=== PATIENT | female | born 1995 | race Caucasian/White ===

== ENCOUNTER → 2017-04-08 | Outpatient (REF) | payer OTHER | LOC: M LAB REF 16:20 | PROVIDERS: ATTEND Physician Assistant | DX: N39.0 Urinary tract infection, site not specified (principal) ==

== ENCOUNTER → 2017-05-24 | Outpatient (REF) | payer OTHER, SELFPAY | LOC: M LAB REF 14:45 | PROVIDERS: ATTEND Physician Assistant | DX: N39.0 Urinary tract infection, site not specified (principal) ==

== ENCOUNTER → 2017-09-01 | Outpatient (REF) | payer OTHER ==
[~2017-09-01] MED LIST: BCP PO; TRAZ50TA11 PO
[2017-09-01 21:16] LABS: BASO % 0.3 % (0.0-1.0); EOS # 0.1 10^3/uL (0.0-0.50); EOS % 1.4 % (0.0-3.0); IMMATURE GRANULOCYTE % 0.2 % (0-0); LYMPH # 1.6 10^3/uL (1.5-6.5); LYMPH % 27.5 % (24.0-44.0); MEAN CORPUSCULAR HEMOGLOBIN 30.1 pg (27.0-33.0); MEAN CORPUSCULAR HGB CONC 34.1 g/dl (32.0-36.5); MEAN CORPUSCULAR VOLUME 88.3 fl (80.0-96.0); MONO # 0.3 10^3/uL (0.0-0.8); MONO % 5.4 % (0.0-5.0); NEUTROPHILS # 3.8 10^3/uL (1.8-7.7); NEUTROPHILS % 65.2 % (36.0-66.0); PLATELET COUNT, AUTOMATED 200 10^3/uL (150-450); RED CELL DISTRIBUTION WIDTH 11.9 % (11.5-14.5); WHITE BLOOD COUNT 5.8 10^3/uL (4.0-10.0)
[2017-09-01 21:31] LABS: ALBUMIN 4.2 GM/DL (3.2-5.2); ALBUMIN/GLOBULIN RATIO 1.27 (1.00-1.93); ALKALINE PHOSPHATASE 61 U/L (45-117); ALT/SGPT 18 U/L (12-78); ANION GAP 6 MEQ/L (8-16); AST/SGOT 16 U/L (7-37); BILIRUBIN,TOTAL 0.3 MG/DL (0.2-1.0); BLOOD UREA NITROGEN 9 MG/DL (7-18); CARBON DIOXIDE LEVEL 29 MEQ/L (21-32); CHLORIDE LEVEL 106 MEQ/L (98-107); CREATININE FOR GFR 0.87 MG/DL (0.55-1.02); FREE T4 1.22 NG/DL (0.78-1.33); GLUCOSE, FASTING 120 MG/DL (70-105); POTASSIUM SERUM 3.7 MEQ/L (3.5-5.1); SODIUM LEVEL 141 MEQ/L (136-145); TOTAL PROTEIN 7.5 GM/DL (6.4-8.2)
== END ==
LOC: M LAB REF 10:11
PROVIDERS: ATTEND Physician Assistant
DX: R51 Headache (principal)

== ENCOUNTER 2017-09-04 09:52 | Emergency (ER) | payer OTHER ==
[~2017-09-04] VITALS: Ht 167.6 cm; Wt 76.1 kg
[2017-09-04] MEDS ORDERED: BCP PO (10:15)
[2017-09-04] MEDS ORDERED: TRAZ50TA11 PO (10:15)
[2017-09-04] MEDS ORDERED: KETOROLAC 30 MG/ML VIAL (J1885) IV ONE (11:00)
--- NOTE | 2017-09-04 11:24 | REP ---
Clinical: Acute headaches . Comparison: 07/16/2012 . Findings: The ventricles, sulci, and cisterns are normal in position and appearance. Fuller-white differentiation is maintained. No acute intracranial hemorrhage, mass/mass effect, pathology or trauma/injury. No evidence for acute infarction. No extra-axial fluid collection. Calvarium is intact. Paranasal sinuses and mastoid air cells are clear. Impression: Normal noncontrast head CT. No evidence for acute intracranial pathology or trauma/injury. Signed by Walter Wright MD 09/04/2017 11:16 A
[2017-09-04 11:45] LABS: BASO % 0.2 % (0.0-1.0); EOS % 0.4 % (0.0-3.0); IMMATURE GRANULOCYTE % 0.4 % (0-0); LYMPH # 1.3 10^3/uL (1.5-6.5); LYMPH % 24.8 % (24.0-44.0); MEAN CORPUSCULAR HEMOGLOBIN 29.9 pg (27.0-33.0); MEAN CORPUSCULAR HGB CONC 34.5 g/dl (32.0-36.5); MEAN CORPUSCULAR VOLUME 86.7 fl (80.0-96.0); MONO # 0.3 10^3/uL (0.0-0.8); MONO % 5.5 % (0.0-5.0); NEUTROPHILS # 3.5 10^3/uL (1.8-7.7); NEUTROPHILS % 68.7 % (36.0-66.0); PLATELET COUNT, AUTOMATED 183 10^3/uL (150-450); RED CELL DISTRIBUTION WIDTH 11.8 % (11.5-14.5); WHITE BLOOD COUNT 5.1 10^3/uL (4.0-10.0)
[2017-09-04 12:03] LABS: ALBUMIN 4.3 GM/DL (3.2-5.2); ALBUMIN/GLOBULIN RATIO 1.16 (1.00-1.93); ALKALINE PHOSPHATASE 50 U/L (45-117); ALT/SGPT 25 U/L (12-78); ANION GAP 7 MEQ/L (8-16); AST/SGOT 17 U/L (7-37); BILIRUBIN,DIRECT 0.2 MG/DL (0.0-0.2); BILIRUBIN,TOTAL 0.5 MG/DL (0.2-1.0); BLOOD UREA NITROGEN 9 MG/DL (7-18); CALCIUM LEVEL 8.9 MG/DL (8.5-10.1); CARBON DIOXIDE LEVEL 28 MEQ/L (21-32); CHLORIDE LEVEL 106 MEQ/L (98-107); CREATININE FOR GFR 0.94 MG/DL (0.55-1.02); GLUCOSE, FASTING 97 MG/DL (70-105); MAGNESIUM LEVEL 2.1 MG/DL (1.8-2.4); POTASSIUM SERUM 3.5 MEQ/L (3.5-5.1); SODIUM LEVEL 141 MEQ/L (136-145)
[2017-09-04 12:09] LABS: VITAMIN B12 LEVEL 200 PG/ML (247-911)
[2017-09-04 13:07] VITALS: BP 139/76
== END 2017-09-04 13:08 | disposition home or self-care (01) ==
LOC: M ED 09:52
DX: G43.009 Migraine without aura, not intractable, without status migrainosus (principal); E53.8 Deficiency of other specified B group vitamins; Z87.820 Personal history of traumatic brain injury; Z86.69 Personal history of other diseases of the nervous system and sense organs; Z82.49 Family history of ischemic heart disease and other diseases of the circulatory system
CPT/HCPCS: 70450; 80048; 80076; 82607; 82652; 83735; 85025; 96374; 99284; J1885

== ENCOUNTER 2017-09-06 15:40 | Emergency (ER) | payer OTHER ==
[~2017-09-06] VITALS: Ht 167.6 cm; Wt 72.7 kg
[2017-09-06] MEDS ORDERED: VITA500T53 PO (15:49)
[2017-09-06 17:13] VITALS: BP 141/75
== END 2017-09-06 17:54 | disposition home or self-care (01) ==
LOC: M ED 15:40
DX: R51 Headache (principal); R11.0 Nausea; H53.8 Other visual disturbances; F41.9 Anxiety disorder, unspecified; E53.8 Deficiency of other specified B group vitamins; Z79.899 Other long term (current) drug therapy; Z87.820 Personal history of traumatic brain injury; Z82.49 Family history of ischemic heart disease and other diseases of the circulatory system

== ENCOUNTER → 2017-09-08 | Outpatient (CLI) | payer OTHER ==
[~2017-09-08] MED LIST changes: +VITA500T53 PO
== END ==
LOC: M LAB 13:05
PROVIDERS: ATTEND Physician Assistant
DX: R51 Headache (principal)

== ENCOUNTER → 2017-09-10 | Outpatient (CLI) | payer OTHER ==
--- NOTE | 2017-09-10 15:11 | REP ---
MRI brain without contrast: History: Headache and pain. Numbness in the hands . Comparison study: Comparison CT studies are reviewed from September 04, 2017 and July 16, 2012. Technique: Axial and sagittal imaging planes are utilized for T1 and T2-weighted scans. Sequences include spin-echo, fast spin echo, FLAIR, and diffusion weighted sequences. MRI findings: No bony calvarial lesion is seen. Craniocervical junction and upper cervical cord are normal in appearance. There is no MR evidence of significant paranasal sinus disease. No intraorbital abnormality is seen. Sella turcica is unremarkable. Suprasellar cistern and optic chiasm is intact. The lateral, third, and fourth ventricles are normal in size and position. Fuller-white differentiation pattern is intact above and below the tentorium. There is no evidence of intracranial hemorrhage. No mass, infarction, extra-axial fluid collection or midline shift is seen. No abnormal white matter lesion is seen. Impression: Negative noncontrast brain MRI study. Signed by Jose Miguel Perez MD 09/10/2017 03:02 P
== END ==
LOC: M RAD 13:26
PROVIDERS: ATTEND Emergency Medicine
DX: R51 Headache (principal); R11.0 Nausea; H53.9 Unspecified visual disturbance

== ENCOUNTER → 2017-11-05 | Outpatient (REF) | payer OTHER ==
[2017-11-06 12:53] LABS: VITAMIN B12 LEVEL > 2000 PG/ML (247-911)
== END ==
LOC: M SFHCLERA 15:50
DX: E53.8 Deficiency of other specified B group vitamins (principal)

== ENCOUNTER → 2018-02-06 | Outpatient (REF) | payer OTHER | LOC: M LAB REF 17:59 | DX: J02.9 Acute pharyngitis, unspecified (principal) | CPT/HCPCS: 87081 ==

== ENCOUNTER → 2018-10-30 | Outpatient (REF) | payer OTHER ==
[~2018-10-30] MED LIST changes: +TRAZ-160 PO; -TRAZ50TA11 PO
[2018-10-30 20:34] LABS: CHLAMYDIA DNA AMPLIFICATION NEGATIVE (NEGATIVE); GC DNA AMPLIFICATION NEGATIVE (NEGATIVE)
== END ==
LOC: M SFHCWAGY 11:38
PROVIDERS: ATTEND Nurse Practitioner Women's Health
DX: Z12.4 Encounter for screening for malignant neoplasm of cervix (principal); R87.612 Low grade squamous intraepithelial lesion on cytologic smear of cervix (LGSIL)
CPT/HCPCS: 87491; 87591; G0123

== ENCOUNTER → 2019-05-03 | Outpatient (CLI) | payer OTHER ==
[~2019-05-03] MED LIST changes: +METHACHOLINE KIT (J7674) INH ONE; +SERT-141 PO; -TRAZ-160 PO; +TRAZ-252 PO; +VITA500T17 PO; -VITA500T53 PO
--- NOTE | 2019-05-03 13:13 | PFTRPT ---
Height: 66.00 Inches Weight: 170.00 Lbs BSA: 1.87 Diagnosis: R05 DATE OF STUDY: 05/03/2019 ORDERED BY: ALESHIA Irvin Spirometry: Pulmonary function of excellent technical quality. Forced vital capacity normal. FEV1 in proportion. Obstructive index is, therefore, normal. Flow Volume Loop: Expiratory limb of the flow volume loop is normal. Lung Volumes: Total lung capacity is normal. Residual volume is in proportion. Diffusing Capacity: Diffusing capacity normal. Hemoglobin: No hemoglobin available for correction. Airway Mechanics: Airway resistance and conductance are normal. IMPRESSION: Normal study. MTDD
--- NOTE | 2019-05-03 13:53 | PFTRPT ---
Height: 66.00 Inches Weight: 170.00 Lbs BSA: 1.87 Diagnosis: R05 DATE OF STUDY: 05/03/2019 ORDERED BY: ALESHIA Irvin INTERPRETATION: Study of excellent technical quality. Under protocol, methacholine was administered. Even after a maximal dose of 25 mg or 188.875 CDUs, no provocation dose was ever achieved. IMPRESSION: Negative methacholine challenge study. MTDD
== END ==
LOC: M CARPUL 12:44
PROVIDERS: ATTEND Nurse Practitioner Adult Health
DX: R05 Cough (principal)
CPT/HCPCS: 94010; 94070; 94726; 94729; J7674

== ENCOUNTER 2019-10-07 02:47 | Emergency (ER) | payer OTHER ==
[~2019-10-07] VITALS: Ht 165.1 cm; Wt 79.5 kg
[~2019-10-07 02:47] MED LIST changes: -METHACHOLINE KIT (J7674) INH ONE; -SERT-141 PO
[2019-10-07] MEDS ORDERED: SERT-141 PO (02:51)
--- NOTE | 2019-10-07 05:52 | REPVR ---
PROCEDURE INFORMATION: Exam: CT Head Without Contrast Exam date and time: 10/07/2019 5:29 AM Age: 24 years old Clinical indication: Weakness, extremity; Right; Patient HX: R arm numb; Additional info: Dysesth TECHNIQUE: Imaging protocol: Computed tomography of the head without contrast. Radiation optimization: All CT scans at this facility use at least one of these dose optimization techniques: automated exposure control; mA and/or kV adjustment per patient size (includes targeted exams where dose is matched to clinical indication); or iterative reconstruction. COMPARISON: CT Head without contrast 09/04/2017 10:57 AM FINDINGS: Brain: No CT evidence of acute cortical infarct. No mass effect. No edema. There is no evidence of intracranial hemorrhage. Ventricles: The ventricular system is midline and appropriate in size. No hydrocephalus. Bones/joints: There is no evidence of acute fracture. Sinuses: Visualized sinuses are unremarkable. No fluid levels. Mastoid air cells: Visualized mastoid air cells are free of acute inflammatory change. Orbits: The included orbital structures are unremarkable. Soft tissues: No large soft tissue hematoma. Please correlate clinically. IMPRESSION: No acute intracranial abnormality. Electronically signed by: Walter Amaya On 10/07/2019 05:51:44 AM
[2019-10-07 06:23] VITALS: BP 140/75
== END 2019-10-07 06:27 | disposition home or self-care (01) ==
LOC: M ED 02:47
DX: R20.2 Paresthesia of skin (principal); F41.9 Anxiety disorder, unspecified; Z79.899 Other long term (current) drug therapy

== ENCOUNTER → 2019-10-08 | Outpatient (REF) | payer OTHER ==
[~2019-10-08] MED LIST changes: +SERT-141 PO
[2019-10-08 18:40] LABS: ALT/SGPT 42 U/L (12-78); BILIRUBIN,TOTAL 0.5 MG/DL (0.2-1.0); BLOOD UREA NITROGEN 7 MG/DL (7-18); CALCIUM LEVEL 8.8 MG/DL (8.5-10.1); CARBON DIOXIDE LEVEL 26 MEQ/L (21-32); CHLORIDE LEVEL 109 MEQ/L (98-107); CREATININE FOR GFR 0.93 MG/DL (0.55-1.30); GLOMERULAR FILTRATION RATE > 60.0 (>60); GLUCOSE, FASTING 86 MG/DL (70-100); POTASSIUM SERUM 3.9 MEQ/L (3.5-5.1); SODIUM LEVEL 142 MEQ/L (136-145); TOTAL PROTEIN 7.3 GM/DL (6.4-8.2); VITAMIN B12 LEVEL 423 PG/ML (247-911)
== END ==
LOC: M SFHCPLAZ 15:22
PROVIDERS: ATTEND Nurse Practitioner Adult Health
DX: E53.8 Deficiency of other specified B group vitamins (principal); R20.2 Paresthesia of skin

== ENCOUNTER → 2019-12-23 | Outpatient (REF) | payer OTHER | LOC: M SFHCWAGY 09:58 | PROVIDERS: ATTEND Nurse Practitioner Women's Health | DX: Z12.4 Encounter for screening for malignant neoplasm of cervix (principal) ==

== ENCOUNTER → 2020-09-13 | Outpatient (REF) | payer OTHER | LOC: M LAB REF 17:33 | PROVIDERS: ATTEND Physician Assistant | DX: D48.9 Neoplasm of uncertain behavior, unspecified (principal) ==

== ENCOUNTER → 2020-11-30 | Outpatient (REF) | payer OTHER | LOC: M SFHCPLAZ 09:51 | PROVIDERS: ATTEND Physician Assistant | DX: B02.9 Zoster without complications (principal) ==

== ENCOUNTER → 2021-07-31 | Outpatient (REF) | payer OTHER ==
[2021-07-31 12:00] LABS: BASO % 0.4 % (0.0-1.0); EOS # 0.1 10^3/uL (0.0-0.5); EOS % 1.7 % (0.0-3.0); HEMATOCRIT 39.5 % (36.0-47.0); HEMOGLOBIN 13.4 g/dl (12.0-15.5); LYMPH # 1.7 10^3/uL (1.5-5.0); LYMPH % 36.2 % (24.0-44.0); MEAN CORPUSCULAR HEMOGLOBIN 29.6 pg (27.0-33.0); MEAN CORPUSCULAR HGB CONC 33.9 g/dl (32.0-36.5); MEAN CORPUSCULAR VOLUME 87.2 fl (80.0-96.0); MONO # 0.4 10^3/uL (0.0-0.8); MONO % 9.3 % (2.0-8.0); NEUTROPHILS # 2.4 10^3/uL (1.5-8.5); NEUTROPHILS % 52.2 % (36.0-66.0); PLATELET COUNT, AUTOMATED 207 10^3/uL (150-450); RED BLOOD COUNT 4.53 10^6/uL (4.00-5.40); WHITE BLOOD COUNT 4.6 10^3/uL (4.0-10.0)
[2021-07-31 12:25] LABS: ALBUMIN 3.7 GM/DL (3.2-5.2); ALT/SGPT 24 U/L (12-78); BILIRUBIN,TOTAL 0.4 MG/DL (0.2-1.0); BLOOD UREA NITROGEN 12 MG/DL (7-18); CALCIUM LEVEL 8.9 MG/DL (8.5-10.1); CARBON DIOXIDE LEVEL 29 MEQ/L (21-32); CHLORIDE LEVEL 107 MEQ/L (98-107); CHOLESTEROL LEVEL 209 MG/DL (<200); CHOLESTEROL RISK RATIO 3.317 (<5); CREATININE FOR GFR 0.93 MG/DL (0.55-1.30); FREE T4 1.05 NG/DL (0.76-1.46); GLOMERULAR FILTRATION RATE > 60.0 (>60); GLUCOSE, FASTING 92 MG/DL (70-100); HDL CHOLESTEROL 63 MG/DL (>40); LDL CHOLESTEROL 116 MG/DL (<100); NON-HDL-C 146 MG/DL; POTASSIUM SERUM 4.1 MEQ/L (3.5-5.1); SODIUM LEVEL 140 MEQ/L (136-145); TOTAL PROTEIN 7.1 GM/DL (6.4-8.2); TRIGLYCERIDES LEVEL 152 MG/DL (<150)
== END ==
LOC: M SFHCCLAY 07:27
PROVIDERS: ATTEND Nurse Practitioner Family
DX: F41.9 Anxiety disorder, unspecified (principal); J30.89 Other allergic rhinitis; E66.9 Obesity, unspecified; Z68.33 Body mass index [BMI] 33.0-33.9, adult

== ENCOUNTER → 2022-07-12 | Outpatient (CLI) | payer OTHER ==
[2022-07-12 13:32] LABS: HEMATOCRIT 39.3 % (36.0-47.0); HEMOGLOBIN 13.6 g/dl (12.0-15.5); MEAN CORPUSCULAR HEMOGLOBIN 30.2 pg (27.0-33.0); MEAN CORPUSCULAR HGB CONC 34.6 g/dl (32.0-36.5); MEAN CORPUSCULAR VOLUME 87.1 fl (80.0-96.0); PLATELET COUNT, AUTOMATED 210 10^3/uL (150-450); RED BLOOD COUNT 4.51 10^6/uL (4.00-5.40); WHITE BLOOD COUNT 6.6 10^3/uL (4.0-10.0)
[2022-07-12 14:53] LABS: HEPATITIS C VIRUS ABY INDEX < 0.0 INDEX (<0.8); HIV 1&2 SCREEN CENTAUR NEGATIVE (NEGATIVE)
[2022-07-12 15:04] LABS: GC DNA AMPLIFICATION NEGATIVE (NEGATIVE)
== END ==
LOC: M PLALAB 11:01
PROVIDERS: ATTEND Advanced Practice Midwife
DX: Z34.01 Encounter for supervision of normal first pregnancy, first trimester (principal)

== ENCOUNTER → 2022-07-22 | Outpatient (REF) | payer OTHER | LOC: M SFHCCLAY 16:47 | PROVIDERS: ATTEND Physician Assistant | DX: R30.0 Dysuria (principal) ==

== ENCOUNTER → 2022-08-28 | Outpatient (CLI) | payer OTHER | LOC: M WHC 13:01 | PROVIDERS: ATTEND Advanced Practice Midwife | DX: Z34.02 Encounter for supervision of normal first pregnancy, second trimester (principal) ==

== ENCOUNTER → 2022-10-03 | Outpatient (CLI) | payer OTHER | LOC: M WHC 13:05 | PROVIDERS: ATTEND Obstetrics & Gynecology | DX: Z36.2 Encounter for other antenatal screening follow-up (principal) ==

== ENCOUNTER 2022-11-05 12:56 | Outpatient (CLI) | payer OTHER ==
[~2022-11-05] VITALS: Ht 165.1 cm; Wt 99.7 kg
[2022-11-05 13:15] VITALS: BP 136/80
[2022-11-05] MEDS ORDERED: SERT-141 PO (13:21)
[2022-11-05] MEDS ORDERED: PRENTAB9 PO (13:21)
[2022-11-05] MEDS ORDERED: TUMS500C PO (13:21)
[2022-11-05] MEDS ORDERED: OMEP40CA4 PO (13:21)
[2022-11-05] MEDS ORDERED: LACTATED RINGER'S 1000 ML IV STA (13:36)
[2022-11-05] MEDS ORDERED: LR 1,000 ML IV SCH (13:40)
[2022-11-05] MEDS ORDERED: PROMETHAZINE 25MG/ML 1ML VIAL IV ONE (13:40)
[2022-11-05 14:14] VITALS: BP 126/68
[2022-11-05] MEDS ORDERED: ONDA4TAB6 PO (16:02)
[2022-11-05 16:16] VITALS: BP 123/71
== END 2022-11-05 17:05 | disposition home or self-care (01) ==
LOC: M LDO 12:56
PROVIDERS: ATTEND Obstetrics & Gynecology
DX: O21.8 Other vomiting complicating pregnancy (principal); Z3A.27 27 weeks gestation of pregnancy
CPT/HCPCS: 59025; 96360; 96361; 96374; G0378; G0463

== ENCOUNTER → 2022-11-08 | Outpatient (CLI) | payer OTHER ==
[~2022-11-08] MED LIST changes: +OMEP40CA4 PO; +ONDA4TAB6 PO; +PRENTAB9 PO; +TUMS500C PO
[2022-11-08 16:28] LABS: HEMATOCRIT 33.1 % (36.0-47.0); HEMOGLOBIN 11.2 g/dl (12.0-15.5); MEAN CORPUSCULAR HGB CONC 33.8 g/dl (32.0-36.5); MEAN CORPUSCULAR VOLUME 91.7 fl (80.0-96.0); PLATELET COUNT, AUTOMATED 142 10^3/uL (150-450); RED BLOOD COUNT 3.61 10^6/uL (4.00-5.40)
== END ==
LOC: M PLALAB 12:48
PROVIDERS: ATTEND Advanced Practice Midwife
DX: Z34.02 Encounter for supervision of normal first pregnancy, second trimester (principal)

== ENCOUNTER → 2022-12-17 | Outpatient (CLI) | payer OTHER ==
[2022-12-17 15:58] LABS: PROTEIN, URINE AUTO TRACE mg/dL (NEGATIVE)
[2022-12-17 16:03] LABS: HEMATOCRIT 36.9 % (36.0-47.0); HEMOGLOBIN 12.4 g/dl (12.0-15.5); MEAN CORPUSCULAR HGB CONC 33.6 g/dl (32.0-36.5); MEAN CORPUSCULAR VOLUME 92.3 fl (80.0-96.0); PLATELET COUNT, AUTOMATED 159 10^3/uL (150-450); WHITE BLOOD COUNT 9.5 10^3/uL (4.0-10.0)
[2022-12-17 16:29] LABS: CREATININE,RANDOM URINE 98.2 MG/DL
[2022-12-17 16:33] LABS: ALBUMIN 2.9 G/DL (3.2-5.2); ALKALINE PHOSPHATASE 111 U/L (46-116); ALT/SGPT 20 U/L (7.0-40); AST/SGOT 24 U/L (<34); BILIRUBIN,TOTAL 0.4 MG/DL (0.3-1.2); BLOOD UREA NITROGEN 7 MG/DL (9-23); CALCIUM LEVEL 9.3 MG/DL (8.5-10.1); CARBON DIOXIDE LEVEL 24 MMOL/L (20-31); CHLORIDE LEVEL 104 MMOL/L (98-107); CREATININE FOR GFR 0.67 MG/DL (0.55-1.30); GLOMERULAR FILTRATION RATE > 60.0 (>60); GLUCOSE, FASTING 89 MG/DL (60-100); SODIUM LEVEL 137 MMOL/L (136-145); TOTAL PROTEIN 6.3 G/DL (5.7-8.2)
== END ==
LOC: M PLALAB 14:07
PROVIDERS: ATTEND Specialist
DX: O16.3 Unspecified maternal hypertension, third trimester (principal)

== ENCOUNTER 2022-12-20 15:51 | Outpatient (CLI) | payer OTHER ==
[~2022-12-20] VITALS: Ht 165.1 cm; Wt 106.0 kg
[2022-12-20 16:11] VITALS: BP 147/89
[2022-12-20] MEDS ORDERED: CHEL100T4 PO (16:13)
[2022-12-20] MEDS ORDERED: VITA100T98 PO (16:15)
[2022-12-20 16:27] VITALS: BP 159/91
[2022-12-20] MEDS ORDERED: BETAMETHASONE SOLUSPAN 6MG/ML 5ML VIAL IM ONE (16:40)
[2022-12-20 16:42] VITALS: BP 156/88
[2022-12-20 17:14] VITALS: BP 149/82
[2022-12-20 17:17] LABS: HEMATOCRIT 34.3 % (36.0-47.0); HEMOGLOBIN 11.6 g/dl (12.0-15.5); MEAN CORPUSCULAR HGB CONC 33.8 g/dl (32.0-36.5); MEAN CORPUSCULAR VOLUME 91.7 fl (80.0-96.0); PLATELET COUNT, AUTOMATED 126 10^3/uL (150-450); RED BLOOD COUNT 3.74 10^6/uL (4.00-5.40); WHITE BLOOD COUNT 8.7 10^3/uL (4.0-10.0)
[2022-12-20 17:29] VITALS: BP 129/74
[2022-12-20 17:37] LABS: TOTAL PROTEIN,RANDOM URINE 9.3 MG/DL (0.0-14.0)
[2022-12-20 17:42] LABS: CREATININE,RANDOM URINE 55.6 MG/DL
[2022-12-20 17:43] LABS: URIC ACID 4.2 MG/DL (3.1-7.8)
[2022-12-20 17:44] LABS: LDH LACTATE DEHYDROGENASE 181 U/L (120-246)
[2022-12-20 17:46] LABS: ALT/SGPT 20 U/L (7.0-40); AST/SGOT 22 U/L (<34); BILIRUBIN,TOTAL 0.3 MG/DL (0.3-1.2); CREATININE FOR GFR 0.61 MG/DL (0.55-1.30); GLOMERULAR FILTRATION RATE > 60.0 (>60)
== END 2022-12-20 19:53 | disposition home or self-care (01) ==
LOC: M LDO 15:51
PROVIDERS: ATTEND Advanced Practice Midwife
DX: O13.3 Gestational [pregnancy-induced] hypertension without significant proteinuria, third trimester (principal); Z98.870 Personal history of in utero procedure during pregnancy; Z3A.34 34 weeks gestation of pregnancy
CPT/HCPCS: 36415; 59025; 82247; 82565; 82570; 83615; 84156; 84450; 84460; 84550; 85027; 96372; G0463; J0702

== ENCOUNTER 2022-12-21 16:45 | Outpatient (CLI) | payer OTHER ==
[~2022-12-21] VITALS: Ht 165.1 cm; Wt 107.0 kg
[~2022-12-21 16:45] MED LIST changes: +CHEL100T4 PO; +VITA100T98 PO
[2022-12-21 16:59] VITALS: BP 149/91
[2022-12-21] MEDS ORDERED: HOME MED LIST COMPLETE! XX SCH (17:10)
[2022-12-21] MEDS ORDERED: BETAMETHASONE SOLUSPAN 6MG/ML 5ML VIAL IM ONE (17:30)
[2022-12-21 17:42] VITALS: BP 157/90
[2022-12-21 17:53] LABS: HEMATOCRIT 33.5 % (36.0-47.0); HEMOGLOBIN 11.5 g/dl (12.0-15.5); MEAN CORPUSCULAR HEMOGLOBIN 31.1 pg (27.0-33.0); MEAN CORPUSCULAR HGB CONC 34.3 g/dl (32.0-36.5); MEAN CORPUSCULAR VOLUME 90.5 fl (80.0-96.0); PLATELET COUNT, AUTOMATED 148 10^3/uL (150-450); WHITE BLOOD COUNT 13.1 10^3/uL (4.0-10.0)
[2022-12-21 18:03] VITALS: BP 145/80
[2022-12-21 18:16] VITALS: BP 137/77
[2022-12-21 18:16] LABS: URIC ACID 4.2 MG/DL (3.1-7.8)
[2022-12-21 18:18] LABS: LDH LACTATE DEHYDROGENASE 211 U/L (120-246)
[2022-12-21 18:19] LABS: ALT/SGPT 18 U/L (7.0-40); AST/SGOT 23 U/L (<34); BILIRUBIN,TOTAL 0.3 MG/DL (0.3-1.2); CREATININE FOR GFR 0.75 MG/DL (0.55-1.30); GLOMERULAR FILTRATION RATE > 60.0 (>60)
[2022-12-21 18:26] LABS: TOTAL PROTEIN,RANDOM URINE 17.5 MG/DL (0.0-14.0)
[2022-12-21 18:31] VITALS: BP 126/70
[2022-12-21 18:31] LABS: CREATININE,RANDOM URINE 151.2 MG/DL
== END 2022-12-21 18:50 | disposition home or self-care (01) ==
LOC: M LDO 16:45
PROVIDERS: ATTEND Obstetrics & Gynecology
DX: O13.3 Gestational [pregnancy-induced] hypertension without significant proteinuria, third trimester (principal); Z3A.34 34 weeks gestation of pregnancy; O09.813 Supervision of pregnancy resulting from assisted reproductive technology, third trimester; Z79.899 Other long term (current) drug therapy
CPT/HCPCS: 36415; 59025; 82247; 82565; 82570; 83615; 84156; 84450; 84460; 84550; 85027; G0463; J0702

== ENCOUNTER 2022-12-31 11:16 | Outpatient (CLI) | payer OTHER ==
[~2022-12-31] VITALS: Ht 165.1 cm; Wt 105.7 kg
[2022-12-31] MEDS ORDERED: SERT50TA29 PO (11:33)
[2022-12-31] MEDS ORDERED: HOME MED LIST COMPLETE! XX SCH (11:35)
[2022-12-31 11:42] VITALS: BP 136/88
== END 2022-12-31 14:09 | disposition home or self-care (01) ==
LOC: M LDO 11:16
PROVIDERS: ATTEND Obstetrics & Gynecology
DX: O26.893 Other specified pregnancy related conditions, third trimester (principal); R03.0 Elevated blood-pressure reading, without diagnosis of hypertension; Z3A.35 35 weeks gestation of pregnancy
CPT/HCPCS: 59025; 76815; 87081; G0463

== ENCOUNTER 2023-01-03 11:15 | Outpatient (CLI) | payer OTHER ==
[~2023-01-03] VITALS: Ht 165.1 cm; Wt 104.5 kg
[~2023-01-03 11:15] MED LIST changes: +SERT50TA29 PO
[2023-01-03 11:58] VITALS: BP 138/82
[2023-01-03 12:18] VITALS: BP 132/82
[2023-01-03 12:47] LABS: HEMATOCRIT 36.3 % (36.0-47.0); HEMOGLOBIN 12.4 g/dl (12.0-15.5); MEAN CORPUSCULAR HEMOGLOBIN 30.8 pg (27.0-33.0); MEAN CORPUSCULAR HGB CONC 34.2 g/dl (32.0-36.5); MEAN CORPUSCULAR VOLUME 90.1 fl (80.0-96.0); PLATELET COUNT, AUTOMATED 127 10^3/uL (150-450); RED BLOOD COUNT 4.03 10^6/uL (4.00-5.40); WHITE BLOOD COUNT 10.1 10^3/uL (4.0-10.0)
[2023-01-03 13:09] LABS: TOTAL PROTEIN,RANDOM URINE 19.6 MG/DL (0.0-14.0)
[2023-01-03 13:11] LABS: URIC ACID 5.1 MG/DL (3.1-7.8)
[2023-01-03 13:14] LABS: CREATININE,RANDOM URINE 114.3 MG/DL
[2023-01-03 13:14] LABS: LDH LACTATE DEHYDROGENASE 170 U/L (120-246)
[2023-01-03 13:15] LABS: ALT/SGPT 19 U/L (7.0-40); AST/SGOT 22 U/L (<34); BILIRUBIN,TOTAL 0.4 MG/DL (0.3-1.2); CREATININE FOR GFR 0.78 MG/DL (0.55-1.30); GLOMERULAR FILTRATION RATE > 60.0 (>60)
== END 2023-01-03 14:15 | disposition home or self-care (01) ==
LOC: M LDO 11:15
PROVIDERS: ATTEND Advanced Practice Midwife
DX: O13.3 Gestational [pregnancy-induced] hypertension without significant proteinuria, third trimester (principal); Z3A.36 36 weeks gestation of pregnancy
CPT/HCPCS: 36415; 59025; 82247; 82565; 82570; 83615; 84156; 84450; 84460; 84550; 85027; G0463

== ENCOUNTER 2023-01-08 07:33 | Inpatient (IN) | payer OTHER ==
[2023-01-08] VITALS (13 sets, daily range): BP systolic 108–156; BP diastolic 55–89
[~2023-01-08] VITALS: Ht 165.1 cm; Wt 107.8 kg
[2023-01-08] MEDS ORDERED: HOME MED LIST COMPLETE! XX SCH (09:20)
[2023-01-08] MEDS ORDERED: CARBOPROST TROMETHAMINE 250 MCG/ML AMP IM PRN (09:55)
[2023-01-08] MEDS ORDERED: OXYTOCIN INJ 10UNITS/ML 1ML VIAL IM PRN (09:55)
[2023-01-08] MEDS ORDERED: TRANEXAMIC ACID INJection 1,000 MG in NS 100 ML IV PRN (09:55)
[2023-01-08] MEDS ORDERED: LIDOCAINE 1% MDV 20ML VIAL INFIL PRN (09:55)
[2023-01-08] MEDS ORDERED: OXYTOCIN DRIP 30 UNITS in IV 1 EA IV PRN ×4 (09:55)
[2023-01-08] MEDS: miSOPROStol 50MCG 1/2 TABLET PO SCH ×4 (10:17→22:27)
[2023-01-08 10:21] LABS: HEMATOCRIT 35.1 % (36.0-47.0); MEAN CORPUSCULAR HEMOGLOBIN 30.7 pg (27.0-33.0); MEAN CORPUSCULAR HGB CONC 34.2 g/dl (32.0-36.5); MEAN CORPUSCULAR VOLUME 89.8 fl (80.0-96.0); PLATELET COUNT, AUTOMATED 105 10^3/uL (150-450); RED BLOOD COUNT 3.91 10^6/uL (4.00-5.40); WHITE BLOOD COUNT 7.2 10^3/uL (4.0-10.0)
[2023-01-08 10:44] LABS: URIC ACID 5.4 MG/DL (3.1-7.8)
[2023-01-08 10:46] LABS: LDH LACTATE DEHYDROGENASE 200 U/L (120-246)
[2023-01-08 10:48] LABS: ALT/SGPT 20 U/L (7.0-40); AST/SGOT 23 U/L (<34); BILIRUBIN,TOTAL 0.3 MG/DL (0.3-1.2); CREATININE FOR GFR 0.68 MG/DL (0.55-1.30); GLOMERULAR FILTRATION RATE > 60.0 (>60)
[2023-01-09] VITALS (50 sets, daily range): BP systolic 103–158; BP diastolic 55–89
[2023-01-09] MEDS: miSOPROStol 50MCG 1/2 TABLET PO SCH ×2 (02:28→08:40)
[2023-01-09] MEDS ORDERED: OXYTOCIN DRIP 30 UNITS in IV 1 EA IV SCH (08:40)
[2023-01-09] MEDS: SERTRALINE HCL 50 MG TAB PO SCH (09:10)
[2023-01-09] MEDS: OMEPRAZOLE 20MG CAP PO SCH (09:12)
[2023-01-09] MEDS: LR 1,000 ML IV SCH ×3 (09:34→21:38)
[2023-01-09 09:50] LABS: HEMATOCRIT 34.5 % (36.0-47.0); HEMOGLOBIN 11.8 g/dl (12.0-15.5); MEAN CORPUSCULAR HEMOGLOBIN 30.7 pg (27.0-33.0); MEAN CORPUSCULAR HGB CONC 34.2 g/dl (32.0-36.5); MEAN CORPUSCULAR VOLUME 89.8 fl (80.0-96.0); PLATELET COUNT, AUTOMATED 106 10^3/uL (150-450); RED BLOOD COUNT 3.84 10^6/uL (4.00-5.40); WHITE BLOOD COUNT 9.3 10^3/uL (4.0-10.0)
[2023-01-09] MEDS ORDERED: PANTOPRAZOLE 40MG VIAL IV ONE (11:30)
[2023-01-09] MEDS ORDERED: FAMOTIDINE 20MG/2ML VIAL IVP ONE (12:00)
[2023-01-09] MEDS ORDERED: EPIDURAL/PCA KEYS XX PRN (20:30)
[2023-01-09] MEDS ORDERED: diphenhydrAMINE 50MG/ML VIAL IV PRN (20:30)
[2023-01-09] MEDS ORDERED: NALOXONE INJ 0.4MG/1ML VIAL IV PRN (20:30)
[2023-01-09] MEDS ORDERED: LR 500 ML IV PRN (20:30)
[2023-01-09] MEDS ORDERED: ONDANSETRON 4MG 2ML VIAL IV PRN (20:30)
[2023-01-09] MEDS: FENTANYL/ROPIVACAINE/NACL BAG 100 ML EPIDURAL SCH (21:26)
[2023-01-09] MEDS: ePHEDrine SULFATE 25 MG/5 ML(5MG/ML) SYRINGE IVP PRN (21:46)
[2023-01-10] VITALS (38 sets, daily range): BP systolic 68–148; BP diastolic 56–88
[2023-01-10] MEDS: LR 1,000 ML IV SCH ×2 (03:10→20:00)
[2023-01-10] MEDS: FENTANYL/ROPIVACAINE/NACL BAG 100 ML EPIDURAL SCH ×2 (03:45→12:55)
[2023-01-10] MEDS: ePHEDrine SULFATE 25 MG/5 ML(5MG/ML) SYRINGE IVP PRN (04:13)
[2023-01-10] MEDS ORDERED: ROPIvacaine 0.5% 30ML VIAL EPIDURAL PRN (07:55)
[2023-01-10] MEDS: OMEPRAZOLE 20MG CAP PO SCH (09:38)
[2023-01-10] MEDS ORDERED: TRANEXAMIC ACID INJection 1,000 MG in NS 100 ML IV PRN (19:20)
[2023-01-10] MEDS ORDERED: BICITRA 30ML SOLN UDC PO ONE (19:20)
[2023-01-10] MEDS ORDERED: ceFAZolin SOD 2 GM in IV 1 EA IV ONE (19:20)
[2023-01-10] MEDS ORDERED: AZITHROMYCIN INJ 500 MG, VIAL MATE ADAPTER 1 EACH in NS 250 ML IV ONE (19:20)
[2023-01-10] MEDS ORDERED: LIDOCAINE 2% W/EPINEPHRINE 20ML VIAL **PRES FREE As Ordered ONE (19:31)
[2023-01-10] MEDS ORDERED: KETOROLAC 60MG 2ML VIAL As Ordered ONE (19:32)
[2023-01-10] MEDS ORDERED: ONDANSETRON 4MG 2ML VIAL As Ordered ONE (19:32)
[2023-01-10] MEDS ORDERED: OXYTOCIN 30UNITS IN 0.9% NaCl 500ML IV BAG As Ordered ONE ×2 (19:32→20:41)
[2023-01-10] MEDS ORDERED: MORPHINE PRES-FREE INJ 10 MG/10 ML VIAL As Ordered ONE (19:47)
[2023-01-10] MEDS ORDERED: OXYTOCIN DRIP 30 UNITS in IV 1 EA IV SCH (20:00)
[2023-01-10] MEDS ORDERED: SIMETHICONE 80MG CHEW TAB PO PRN (20:00)
[2023-01-10] MEDS ORDERED: RHOGAM 300MCG (1500IU) INJ IM SCH (20:00)
[2023-01-10] MEDS ORDERED: PERCOCET 5MG/325MG TAB PO PRN (20:00)
[2023-01-10] MEDS ORDERED: MOM 30ML SUSPENSION UDC PO PRN (20:00)
[2023-01-10] MEDS ORDERED: PHENYLephrine 500MCG 5ML (100MCG/ML) SYRINGE As Ordered ONE (20:23)
[2023-01-10] MEDS ORDERED: ePHEDrine SULFATE 25 MG/5 ML(5MG/ML) SYRINGE As Ordered ONE (20:23)
[2023-01-10] MEDS ORDERED: METOCLOPRAMIDE INJ 10MG/2ML VIAL IV PRN (20:25)
[2023-01-10] MEDS ORDERED: oxyCODONE 5MG TAB PO PRN (20:25)
[2023-01-10] MEDS ORDERED: NALOXONE INJ 0.4MG/1ML VIAL IV PRN ×2 (20:25)
[2023-01-10] MEDS ORDERED: LR 1,000 ML IV SCH (20:25)
[2023-01-10] MEDS ORDERED: ONDANSETRON 4MG 2ML VIAL IV PRN ×2 (20:25)
[2023-01-10] MEDS ORDERED: diphenhydrAMINE 50MG/ML VIAL IV PRN (20:25)
[2023-01-10] MEDS: SLF 3 ML SYR IV SCH (20:25)
[2023-01-10] MEDS ORDERED: **NOTE PATIENT COMMENT** MISC XX SCH (20:25)
[2023-01-10] MEDS ORDERED: fentaNYL 100 MCG/2 ML INJECTION IV PRN (20:25)
[2023-01-10] MEDS ORDERED: MEPERIDINE 50 MG/ML 1ML VIAL As Ordered ONE (20:36)
[2023-01-10] MEDS: DOCUSATE SODIUM 100MG CAPSULE PO SCH (23:24)
[2023-01-11] VITALS (7 sets, daily range): BP systolic 110–129; BP diastolic 60–76
[2023-01-11] MEDS: KETOROLAC 30 MG/ML 1ML VIAL IV SCH ×3 (02:08→13:40)
[2023-01-11] MEDS: FENTANYL/ROPIVACAINE/NACL BAG 100 ML EPIDURAL SCH (02:30)
[2023-01-11] MEDS: LR 1,000 ML IV SCH (04:19)
[2023-01-11] MEDS: SLF 3 ML SYR IV SCH ×2 (04:25→12:25)
[2023-01-11 07:30] LABS: HEMATOCRIT 30.5 % (36.0-47.0); HEMOGLOBIN 10.2 g/dl (12.0-15.5); MEAN CORPUSCULAR HEMOGLOBIN 30.4 pg (27.0-33.0); MEAN CORPUSCULAR HGB CONC 33.4 g/dl (32.0-36.5); PLATELET COUNT, AUTOMATED 100 10^3/uL (150-450); RED BLOOD COUNT 3.35 10^6/uL (4.00-5.40); WHITE BLOOD COUNT 11.9 10^3/uL (4.0-10.0)
[2023-01-11] MEDS: PRENATAL VITAMINS CHEWABLE TABLET PO SCH (08:11)
[2023-01-11] MEDS: OMEPRAZOLE 20MG CAP PO SCH (08:11)
[2023-01-11] MEDS: DOCUSATE SODIUM 100MG CAPSULE PO SCH ×2 (08:12→21:16)
[2023-01-11] MEDS: SERTRALINE HCL 50 MG TAB PO SCH ×2 (08:12→08:13)
[2023-01-11] MEDS: IBUPROFEN 800 MG TAB PO SCH (21:16)
[2023-01-11] MEDS: PERCOCET 5MG/325MG TAB PO PRN (22:36)
[2023-01-12 02:00] VITALS: BP 128/79
[2023-01-12] MEDS: IBUPROFEN 800 MG TAB PO SCH (05:52)
[2023-01-12 06:00] VITALS: BP 133/75
[2023-01-12] MEDS ORDERED: MEASLES,MUMPS,RUBELLA VACCINE INJ (MMR-II) SC.IMMUN ONE (09:00)
[2023-01-12] MEDS: OMEPRAZOLE 20MG CAP PO SCH (09:01)
[2023-01-12] MEDS: SERTRALINE HCL 50 MG TAB PO SCH (09:01)
[2023-01-12] MEDS: PERCOCET 5MG/325MG TAB PO PRN (09:02)
[2023-01-12] MEDS: PRENATAL VITAMINS CHEWABLE TABLET PO SCH (09:02)
[2023-01-12] MEDS: DOCUSATE SODIUM 100MG CAPSULE PO SCH (09:03)
[2023-01-12 10:00] VITALS: BP 109/63
[2023-01-12] MEDS ORDERED: COLA100C5 PO (10:48)
[2023-01-12] MEDS ORDERED: IBUP80TA PO (10:48)
[2023-01-12] MEDS ORDERED: PERCOCET PO (10:48)
== END 2023-01-12 14:05 | disposition home or self-care (01) | DRG 540 ==
LOC: M LDI 08:58 → M OBS 01-10 22:19
PROVIDERS: ADMIT Advanced Practice Midwife; ATTEND Obstetrics & Gynecology
PROC: 3E0P7GC Introduction of Other Therapeutic Substance into Female Reproductive, Via Natural or Artificial Opening (ICD-10-PCS; 2023-01-08)
PROC: 10907ZC Drainage of Amniotic Fluid, Therapeutic from Products of Conception, Via Natural or Artificial Opening (ICD-10-PCS; 2023-01-10)
PROC: 10D00Z1 Extraction of Products of Conception, Low, Open Approach (ICD-10-PCS; principal; 2023-01-10 19:26)
DX: O13.4 Gestational [pregnancy-induced] hypertension without significant proteinuria, complicating childbirth (principal); O64.0XX0 Obstructed labor due to incomplete rotation of fetal head, not applicable or unspecified; O09.813 Supervision of pregnancy resulting from assisted reproductive technology, third trimester; Z3A.37 37 weeks gestation of pregnancy; Z37.0 Single live birth; Z88.0 Allergy status to penicillin; Z79.899 Other long term (current) drug therapy

== ENCOUNTER → 2023-06-09 | Outpatient (REF) | payer OTHER ==
[~2023-06-09] MED LIST changes: +COLA100C5 PO; +IBUP80TA PO; +PERCOCET PO
== END ==
LOC: M SFHCWAGY 10:11
PROVIDERS: ATTEND Obstetrics & Gynecology
DX: Z01.419 Encounter for gynecological examination (general) (routine) without abnormal findings (principal)

== ENCOUNTER → 2024-02-25 | Outpatient (REF) | payer OTHER ==
[2024-02-25 11:38] LABS: ESTRADIOL 473.7 PG/ML; PROGESTERONE 21.2 NG/ML
== END ==
LOC: M LABDRAWC 10:33
PROVIDERS: ATTEND Obstetrics & Gynecology Reproductive Endocrinology
DX: Z31.49 Encounter for other procreative investigation and testing (principal)

== ENCOUNTER → 2024-03-01 | Outpatient (REF) | payer OTHER ==
[2024-03-01 12:41] LABS: HCG, SERUM QUANTITATIVE 173.3 MIU/ML (<4.2)
[2024-03-01 12:45] LABS: PROGESTERONE 20.13 NG/ML
== END ==
LOC: M LABDRAWC 11:13
PROVIDERS: ATTEND Obstetrics & Gynecology Reproductive Endocrinology
DX: Z32.00 Encounter for pregnancy test, result unknown (principal)

== ENCOUNTER → 2024-03-04 | Outpatient (REF) | payer OTHER ==
[2024-03-04 12:46] LABS: THYROID STIMULATING HORMONE 1.272 uIU/ML (0.55-4.78)
[2024-03-04 12:47] LABS: ESTRADIOL 1740.2 PG/ML; PROGESTERONE 25.16 NG/ML
== END ==
LOC: M LABDRAWC 11:33
PROVIDERS: ATTEND Obstetrics & Gynecology Reproductive Endocrinology
DX: Z32.01 Encounter for pregnancy test, result positive (principal)

== ENCOUNTER → 2024-03-12 | Outpatient (CLI) | payer OTHER | LOC: M WHC 08:42 | PROVIDERS: ATTEND Obstetrics & Gynecology Reproductive Endocrinology | DX: Z32.01 Encounter for pregnancy test, result positive (principal); Z3A.01 Less than 8 weeks gestation of pregnancy ==

== ENCOUNTER → 2024-03-12 | Outpatient (CLI) | payer OTHER ==
[2024-03-12 13:25] LABS: ESTRADIOL 366.8 PG/ML
[2024-03-12 13:27] LABS: PROGESTERONE 19.65 NG/ML
[2024-03-12 13:34] LABS: HCG, SERUM QUANTITATIVE 22662.4 MIU/ML (<4.2)
== END ==
LOC: M PLALAB 10:27
PROVIDERS: ATTEND Obstetrics & Gynecology Reproductive Endocrinology
DX: Z32.01 Encounter for pregnancy test, result positive (principal)

== ENCOUNTER → 2024-03-19 | Outpatient (CLI) | payer OTHER ==
[~2024-03-19] MED LIST changes: +ONDA-282 PO; -ONDA4TAB6 PO
[2024-03-19 10:06] LABS: ESTRADIOL 2158.1 PG/ML; PROGESTERONE 34.56 NG/ML
[2024-03-19 10:22] LABS: HCG, SERUM QUANTITATIVE 74421.9 MIU/ML (<4.2)
== END ==
LOC: M WHC 07:23
PROVIDERS: ATTEND Obstetrics & Gynecology Reproductive Endocrinology
DX: O09.00 Supervision of pregnancy with history of infertility, unspecified trimester (principal); Z3A.01 Less than 8 weeks gestation of pregnancy

== ENCOUNTER → 2024-04-28 | Outpatient (CLI) | payer OTHER ==
[2024-04-28 17:31] LABS: HEMATOCRIT 37.7 % (36.0-47.0); HEMOGLOBIN 13.1 g/dl (12.0-15.5); MEAN CORPUSCULAR HEMOGLOBIN 30.2 pg (27.0-33.0); MEAN CORPUSCULAR HGB CONC 34.7 g/dl (32.0-36.5); MEAN CORPUSCULAR VOLUME 86.9 fl (80.0-96.0); PLATELET COUNT, AUTOMATED 188 10^3/uL (150-450); RED BLOOD COUNT 4.34 10^6/uL (4.00-5.40); WHITE BLOOD COUNT 7.1 10^3/uL (4.0-10.0)
[2024-04-28 18:27] LABS: HIV 1&2 SCREEN NEGATIVE (NEGATIVE)
[2024-04-28 18:35] LABS: HEPATITIS C VIRUS ABY INDEX < 0.02 INDEX (<0.8)
[2024-04-28 19:05] LABS: GC DNA AMPLIFICATION NEGATIVE (NEGATIVE)
== END ==
LOC: M PLALAB 14:46
PROVIDERS: ATTEND Specialist
DX: Z34.81 Encounter for supervision of other normal pregnancy, first trimester (principal)

== ENCOUNTER → 2024-05-21 | Outpatient (CLI) | payer OTHER | LOC: M PLALAB 14:44 | PROVIDERS: ATTEND Specialist | DX: Z34.82 Encounter for supervision of other normal pregnancy, second trimester (principal) ==

== ENCOUNTER → 2024-06-18 | Outpatient (CLI) | payer OTHER | LOC: M WHC 12:01 | PROVIDERS: ATTEND Specialist | DX: Z34.82 Encounter for supervision of other normal pregnancy, second trimester (principal) ==

== ENCOUNTER → 2024-07-22 | Outpatient (CLI) | payer OTHER ==
[2024-07-22 18:28] LABS: TOTAL PROTEIN,RANDOM URINE 7.9 MG/DL (0.0-14.0)
[2024-07-22 18:30] LABS: URIC ACID 3.3 MG/DL (3.1-7.8)
[2024-07-22 18:33] LABS: LDH LACTATE DEHYDROGENASE 167 U/L (120-246)
[2024-07-22 18:34] LABS: ALT/SGPT 11 U/L (7.0-40); AST/SGOT 12 U/L (<34); BILIRUBIN,TOTAL 0.3 MG/DL (0.3-1.2); CREATININE FOR GFR 0.67 MG/DL (0.55-1.30); GLOMERULAR FILTRATION RATE > 60.0 (>60)
== END ==
LOC: M PLALAB 15:47
PROVIDERS: ATTEND Specialist
DX: Z34.82 Encounter for supervision of other normal pregnancy, second trimester (principal)

== ENCOUNTER → 2024-07-22 | Outpatient (CLI) | payer OTHER ==
[2024-07-22 18:18] LABS: HEMATOCRIT 33.1 % (36.0-47.0); HEMOGLOBIN 11.3 g/dl (12.0-15.5); MEAN CORPUSCULAR HEMOGLOBIN 31.3 pg (27.0-33.0); MEAN CORPUSCULAR HGB CONC 34.1 g/dl (32.0-36.5); MEAN CORPUSCULAR VOLUME 91.7 fl (80.0-96.0); PLATELET COUNT, AUTOMATED 155 10^3/uL (150-450); RED BLOOD COUNT 3.61 10^6/uL (4.00-5.40); WHITE BLOOD COUNT 7.2 10^3/uL (4.0-10.0)
[2024-07-22 18:31] LABS: GLUCOSE CHALLENGE TEST 1 HOUR 137 MG/DL (LESS THAN 140)
[2024-07-22 19:07] LABS: HIV 1&2 SCREEN NEGATIVE (NEGATIVE)
[2024-07-22 19:14] LABS: HEPATITIS C VIRUS ABY INDEX 0.02 INDEX (<0.8)
[2024-07-22 19:48] LABS: GC DNA AMPLIFICATION NEGATIVE (NEGATIVE)
== END ==
LOC: M PLALAB 14:43
PROVIDERS: ATTEND Obstetrics & Gynecology
DX: Z34.82 Encounter for supervision of other normal pregnancy, second trimester (principal)

== ENCOUNTER → 2024-07-27 | Outpatient (CLI) | payer OTHER | LOC: M WHC 14:42 | PROVIDERS: ATTEND Obstetrics & Gynecology | DX: Z34.82 Encounter for supervision of other normal pregnancy, second trimester (principal); Z3A.25 25 weeks gestation of pregnancy ==

== ENCOUNTER → 2024-08-12 | Outpatient (CLI) | payer OTHER | LOC: M LAB 07:36 | PROVIDERS: ATTEND Obstetrics & Gynecology | DX: R73.09 Other abnormal glucose (principal) ==

== ENCOUNTER → 2024-09-15 | Outpatient (CLI) | payer OTHER | LOC: M WHC 09:16 | PROVIDERS: ATTEND Advanced Practice Midwife | DX: O13.2 Gestational [pregnancy-induced] hypertension without significant proteinuria, second trimester (principal); Z3A.32 32 weeks gestation of pregnancy ==

== ENCOUNTER → 2024-10-08 | Outpatient (REF) | payer OTHER | LOC: M SFHCWAGY 14:49 | PROVIDERS: ATTEND Specialist | DX: Z34.93 Encounter for supervision of normal pregnancy, unspecified, third trimester (principal); Z3A.36 36 weeks gestation of pregnancy ==

== ENCOUNTER → 2024-10-11 | Outpatient (CLI) | payer OTHER | LOC: M WHC 09:47 | PROVIDERS: ATTEND Advanced Practice Midwife | DX: O13.3 Gestational [pregnancy-induced] hypertension without significant proteinuria, third trimester (principal); Z3A.36 36 weeks gestation of pregnancy ==

== ENCOUNTER 2024-10-19 05:28 | Inpatient (IN) | payer OTHER ==
[~2024-10-19] VITALS: Ht 165.1 cm; Wt 109.6 kg
[2024-10-19] VITALS (15 sets, daily range): BP systolic 107–140; BP diastolic 53–77; TEMP 97.8; O2SAT 96–100
[2024-10-19 06:41] LABS: HEMATOCRIT 32.4 % (36.0-47.0); HEMOGLOBIN 10.9 g/dl (12.0-15.5); MEAN CORPUSCULAR HEMOGLOBIN 29.1 pg (27.0-33.0); MEAN CORPUSCULAR HGB CONC 33.6 g/dl (32.0-36.5); MEAN CORPUSCULAR VOLUME 86.4 fl (80.0-96.0); PLATELET COUNT, AUTOMATED 140 10^3/uL (150-450); RED BLOOD COUNT 3.75 10^6/uL (4.00-5.40)
[2024-10-19] MEDS: LR 1,000 ML IV ONE (06:47)
[2024-10-19] MEDS: LR 1,000 ML IV SCH ×2 (06:47→08:25)
[2024-10-19] MEDS ORDERED: RIBO100T3 PO (07:32)
[2024-10-19 07:37] LABS: HEPATITIS C VIRUS ABY INDEX < 0.02 INDEX (<0.8)
[2024-10-19] MEDS: BICITRA 30ML SOLN UDC PO ONE (07:53)
[2024-10-19] MEDS: ceFAZolin SOD 2 GM in IV 1 EA IV ONE (07:54)
[2024-10-19] MEDS ORDERED: ANUSOL HC CREAM 30GM TOP PRN (08:25)
[2024-10-19] MEDS ORDERED: ONDANSETRON 4MG 2ML VIAL IV PRN (08:25)
[2024-10-19] MEDS ORDERED: MORPHINE PRES-FREE INJ 10 MG/10 ML VIAL As Ordered ONE (08:25)
[2024-10-19] MEDS ORDERED: OXYTOCIN 30UNITS IN 0.9% NaCl 500ML IV BAG As Ordered ONE (08:25)
[2024-10-19] MEDS ORDERED: PERCOCET 5MG/325MG TAB PO PRN ×2 (08:25)
[2024-10-19] MEDS ORDERED: MOM 30ML SUSPENSION UDC PO PRN (08:25)
[2024-10-19] MEDS ORDERED: ACETAMINOPHEN 1000MG/100ML IV BAG As Ordered ONE (08:25)
[2024-10-19] MEDS ORDERED: ONDANSETRON 4MG 2ML VIAL As Ordered ONE (08:25)
[2024-10-19] MEDS ORDERED: KETOROLAC 60MG 2ML VIAL As Ordered ONE (08:25)
[2024-10-19] MEDS ORDERED: PROMETHAZINE 25 MG TAB PO PRN (08:25)
[2024-10-19] MEDS ORDERED: ePHEDrine SULFATE 25 MG/5 ML(5MG/ML) SYRINGE As Ordered ONE (08:26)
[2024-10-19] MEDS ORDERED: PHENYLephrine 500MCG 5ML (100MCG/ML) SYRINGE As Ordered ONE (08:27)
[2024-10-19] MEDS: DOCUSATE SODIUM 100MG CAPSULE PO SCH (09:00)
[2024-10-19] MEDS: PRENATAL VITAMINS CHEWABLE TABLET PO SCH (09:00)
[2024-10-19] MEDS: OXYTOCIN DRIP 30 UNITS in IV 1 EA IV SCH (09:39)
[2024-10-19] MEDS: TRANEXAMIC ACID INJection 1,000 MG in NS 100 ML IV PRN (13:13)
[2024-10-19] MEDS: METHYLERGONOVINE MALEATE 0.2MG/ML 1ML VIAL IM STA (13:36)
[2024-10-19] MEDS: OXYTOCIN DRIP 30 UNITS in IV 1 EA IV PRN (13:36)
[2024-10-19] MEDS: OMEPRAZOLE 20MG CAP PO SCH (16:13)
[2024-10-19] MEDS: KETOROLAC 30 MG/ML 1ML VIAL IV SCH (16:14)
[2024-10-19] MEDS: SERTRALINE 100 MG TAB PO SCH (16:14)
[2024-10-20] VITALS (7 sets, daily range): BP systolic 96–134; BP diastolic 46–72; O2SAT 97–100
[2024-10-20 07:03] LABS: HEMATOCRIT 27.7 % (36.0-47.0); HEMOGLOBIN 9.3 g/dl (12.0-15.5); MEAN CORPUSCULAR HEMOGLOBIN 29.9 pg (27.0-33.0); MEAN CORPUSCULAR HGB CONC 33.6 g/dl (32.0-36.5); MEAN CORPUSCULAR VOLUME 89.1 fl (80.0-96.0); PLATELET COUNT, AUTOMATED 136 10^3/uL (150-450); RED BLOOD COUNT 3.11 10^6/uL (4.00-5.40); WHITE BLOOD COUNT 9.3 10^3/uL (4.0-10.0)
[2024-10-20] MEDS: SIMETHICONE 80MG CHEW TAB PO PRN (09:11)
[2024-10-20] MEDS: IBUPROFEN 800 MG TAB PO SCH (11:01)
[2024-10-20] MEDS: RHOGAM 300MCG (1500IU) INJ IM SCH (11:02)
[2024-10-21 02:00] VITALS: BP 111/58; O2SAT 97
[2024-10-21 05:54] VITALS: BP 131/62; O2SAT 97
[2024-10-21] MEDS ORDERED: MEASLES,MUMPS,RUBELLA VACCINE INJ (MMR-II) SC.IMMUN ONE (09:00)
[2024-10-21 09:56] VITALS: BP 108/52; O2SAT 98
== END 2024-10-21 12:45 | disposition home or self-care (01) | DRG 787 ==
LOC: M LDI 05:28 → M OBS 10:42
PROVIDERS: ADMIT Obstetrics & Gynecology; ATTEND Obstetrics & Gynecology
PROC: 10D00Z1 Extraction of Products of Conception, Low, Open Approach (ICD-10-PCS; principal; 2024-10-19 07:30)
DX: O40.3XX0 Polyhydramnios, third trimester, not applicable or unspecified (principal); O72.1 Other immediate postpartum hemorrhage; Z37.0 Single live birth; Z3A.37 37 weeks gestation of pregnancy; O34.211 Maternal care for low transverse scar from previous cesarean delivery; O13.4 Gestational [pregnancy-induced] hypertension without significant proteinuria, complicating childbirth

== ENCOUNTER → 2025-09-26 | Outpatient (REF) | payer OTHER ==
[~2025-09-26] MED LIST changes: +RIBO100T3 PO; -VITA500T17 PO; +VITA500T8 PO
== END ==
LOC: M SFHCDERM 17:21
PROVIDERS: ATTEND Physician Assistant
DX: D48.5 Neoplasm of uncertain behavior of skin (principal)